=== PATIENT | female | born 1990 | race Caucasian/White ===

== ENCOUNTER 2019-05-15 11:58 | Emergency (ER) | payer MEDICAID ==
[~2019-05-15] VITALS: Ht 149.9 cm; Wt 86.4 kg
[2019-05-15] MEDS ORDERED: ACETAMINOPHEN 500 MG TABLET PO ONE (14:00)
[2019-05-15 14:24] VITALS: BP 119/68
== END 2019-05-15 14:42 | disposition home or self-care (01) ==
LOC: EMS 12:00
DX: L03.011 Cellulitis of right finger (principal); F17.210 Nicotine dependence, cigarettes, uncomplicated; F12.90 Cannabis use, unspecified, uncomplicated; Z98.890 Other specified postprocedural states
CPT/HCPCS: 10060

== ENCOUNTER 2020-04-14 18:34 | Emergency (ER) | payer MEDICAID ==
[~2020-04-14] VITALS: Ht 149.9 cm; Wt 68.2 kg
[2020-04-14 20:14] VITALS: BP 115/65
== END 2020-04-14 20:18 | disposition home or self-care (01) ==
LOC: EMS 18:37
DX: T19.2XXA Foreign body in vulva and vagina, initial encounter (principal); F17.210 Nicotine dependence, cigarettes, uncomplicated; F12.90 Cannabis use, unspecified, uncomplicated; W45.8XXA Other foreign body or object entering through skin, initial encounter; Y93.89 Activity, other specified; Y92.89 Other specified places as the place of occurrence of the external cause; Y99.8 Other external cause status
CPT/HCPCS: Z7502